=== PATIENT | male | born 1990 | race African-American/Black ===

== ENCOUNTER 2018-08-18 21:41 | Emergency (ER) | payer SELFPAY ==
[2018-08-18] MEDS ORDERED: Azithromycin 250 MG Tab PO ONE (22:07)
--- NOTE | 2018-08-18 22:11 | EDM.PDOC ---
ED HPI GENERAL MEDICAL PROBLEM - General Chief Complaint: Genitourinary Problem Stated Complaint: STD TEST POSSIBLE CHLAMYDIA Time Seen by Provider: 08/18/18 22:00 Source of Information: Reports: Patient History Limitations: Reports: No Limitations - History of Present Illness INITIAL COMMENTS - FREE TEXT/NARRATIVE: 28 y/o M requests STD testing. His girlfriend recently tested positive for chlamydia. He has had a minimal amount of watery discharge from his penis. No additional symptoms. Denies pain/dysuria/hematuria or genital pain/swelling or lesions. No fever. No recent illness. Denies history of known prior STD. - Related Data Allergies Allergy/AdvReac Type Severity Reaction Status Date / Time No Known Allergies Allergy Verified 08/18/18 21:58 Home Meds: Home Meds . [No Known Home Meds] 08/18/18 [History] ED ROS GENERAL - Review of Systems Review Of Systems: See Below Constitutional: Denies: Fever HEENT: Reports: No Symptoms Respiratory: Denies: Shortness of Breath Cardiovascular: Denies: Chest Pain Endocrine: Reports: No Symptoms GI/Abdominal: Denies: Abdominal Pain : Denies: Dysuria Musculoskeletal: Reports: No Symptoms Neurological: Reports: No Symptoms ED EXAM, RENAL/ - Physical Exam Exam: See Below Exam Limited By: No Limitations General Appearance: Alert, WD/WN, No Apparent Distress Eye Exam: Bilateral Eye: Normal Inspection Ears: Normal External Exam Nose: Normal Inspection Throat/Mouth: Normal Inspection, Normal Voice Head: Atraumatic, Normocephalic Neck: Normal Inspection, Supple Respiratory/Chest: No Respiratory Distress (Male) Exam: Other (refused exam) Neurological: Alert, Oriented, Normal Cognition Psychiatric: Normal Affect, Normal Mood Skin Exam: Warm, Dry, Intact, Normal Color, No Rash Course - Vital Signs Last Recorded V/S: Last Vital Signs Temp 37.1 C 08/18/18 21:53 Pulse 58 L 08/18/18 21:53 Resp 18 08/18/18 21:53 BP 133/80 08/18/18 21:53 Pulse Ox 100 08/18/18 21:53 - Orders/Labs/Meds Orders: Active Orders 24 hr Category Date Time Status GC/CHLAMYDIA BY PCR [[facility]] Stat Lab 08/18/18 21:55 Ordered Meds: Medications Discontinued Medications Generic Name Dose Route Start Last Admin Trade Name Freq PRN Reason Stop Dose Admin Azithromycin 1,000 mg 08/18/18 22:07 08/18/18 22:18 Zithromax PO 08/18/18 22:08 1,000 mg ONETIME ONE Administration - Re-Assessments/Exams Free Text/Narrative Re-Assessment/Exam: 08/18/18 22:09 Given exposure will treat regardless of testing result. I told patient I will call him with result as he doesn't want to stay. 08/19/18 00:35 Departure - Departure Time of Disposition: 22:31 Disposition: Home, Self-Care 01 Clinical Impression: Exposure to STD - Discharge Information Instructions: Chlamydia, Male, Preventing Sexually Transmitted Infections, Adult Referrals: PCP,None [Primary Care Provider] - Forms: ED Department Discharge Additional Instructions: 1. Follow up with a primary care provider as needed for further care. Call [phone] to schedule. 2. Return to the ED as needed for significant pain, swelling or other concerning symptoms. 3. The antibiotics we've given you are the treatment for chlamydia. I will call you and let you know if you have the infection or not. - My Orders Last 24 Hours: My Active Orders 08/18/18 21:55 GC/CHLAMYDIA BY PCR [[facility]] Stat - Assessment/Plan Last 24 Hours: My Active Orders 08/18/18 21:55 GC/CHLAMYDIA BY PCR [[facility]] Stat
[2018-08-18 23:37] LABS: C. TRACHOMATIS BY PCR DETECTED; N. GONORRHOEAE BY PCR NOT DETECTED
== END 2018-08-18 22:38 | disposition home or self-care (01) ==
LOC: JD.ED 21:41
DX: Z20.2 Contact with and (suspected) exposure to infections with a predominantly sexual mode of transmission (principal)
CPT/HCPCS: 87491; 87591; 99283; A9270; 99282